=== PATIENT | male | born 1990 | race Caucasian/White ===

== ENCOUNTER 2022-12-29 03:01 | Emergency (ER) | payer MEDICAID, OTHER ==
[~2022-12-29] VITALS: Ht 177.8 cm; Wt 75.0 kg
[2022-12-29 03:15] VITALS: BP 113/72; PULSE 85; RESP 16; TEMP 98.6; O2SAT 99
[2022-12-29] MEDS ORDERED: TOPUD MT (04:15)
[2022-12-29] MEDS ORDERED: CEPH500C2 MT (04:15)
== END 2022-12-29 04:55 ==
LOC: ER 03:13
DX: S61.402A Unspecified open wound of left hand, initial encounter (principal); W26.0XXA Contact with knife, initial encounter; Y93.89 Activity, other specified; Y92.89 Other specified places as the place of occurrence of the external cause; Y99.8 Other external cause status
CPT/HCPCS: 99283